=== PATIENT | male | born 2000 | race African-American/Black ===

== ENCOUNTER 2019-03-02 12:32 | Emergency (ER) | payer OTHER, SELFPAY ==
[2019-03-02 12:33] VITALS: BP 140/83; PULSE 85; RESP 14; TEMP 37.7; O2SAT 98; BMI 17.2
[2019-03-02] MEDS: predniSONE 20 MG Tablet 40 MG PO (13:11)
--- NOTE | 2019-03-02 13:36 | ED.DCSUM_ITS ---
- ER Visit Summary Date of Service: 03/02/19 Chief Complaint: Rash History of Present Illness: The patient is a 18 M who has a rash. It started today. He has hives on his arms face and back. He feels like he has trouble swallowing. Denies any new irritants such as soaps, lotions, shampoos or pets. He states they do itch. He had the same thing as a child. He has taken nothing for it. Denies any tongue swelling. Physical Examination: Vital signs reviewed. HEENT exam unremarkable. No stridor. Heart is regular. Lungs are clear. Abdomen soft. Skin exam reveals hives that are scattered on the neck and arms. His neurologic exam is normal Test Results: None performed Emergency Department Course and Treatment: Patient will be treated with Benadryl and prednisone. He will follow-up with his PCP Treatment Plan: [] Disposition: Discharge Impression: Urticaria This note was generated with [employer] dictation software. It may contain incorrect words, spelling, and punctuation that were not noted in review of the chart prior to signing ED Disposition - Plan for ED Patient: Referrals: Jesus Acosta MD [Primary Care Provider] -
--- NOTE | 2019-03-02 13:36 | ED.DEP ---
ED Disposition - Plan for ED Patient: Disposition: Home or Assisted Living Instructions: ED Urticaria Prescriptions: Prednisone [Deltasone] 40 mg PO DAILY #8 tab Referrals: Jesus Acosta MD [Primary Care Provider] -
[2019-03-02 13:50] VITALS: RESP 18
== END 2019-03-02 13:50 | disposition home or self-care (01) ==
PROVIDERS: Emergency Provider Emergency Medicine; Family Provider Pediatrics; PCP Pediatrics
DX: L50.9 Urticaria, unspecified (principal)
CPT/HCPCS: 99283